=== PATIENT | male | born 1955 | race Caucasian/White ===

== ENCOUNTER 2018-09-01 10:26 | Emergency (ER) | payer OTHER ==
[~2018-09-01] VITALS: Ht 177.8 cm; Wt 113.4 kg
[~2018-09-01 10:26] MED LIST: ASPI-1718 PO; CALCIUM PO; CARV25TA PO; INSU100S45 SUBQ; INSU100S55 SC; LEVEMIR SUBQ; LEVO0.083 PO; LISI10TA11 PO; SIMV40TA5 PO; TRAM50TA1 PO
--- NOTE | 2018-09-01 10:33 | NUR ---
PATIENT AMBULATED TO BED 9 AT THIS TIME.
[2018-09-01 10:35] VITALS: BP 174/84
--- NOTE | 2018-09-01 10:45 | NUR ---
C/O R great toe laceration x today. pt reports tripping on his sock this morning and then noticing the laceration. No active bleeding at this time. Pt denies pain. Pt foot propped in bed, removed pt gauze to assess wound, reapplied 1 piece 1x1 sterile gauze to cover wound until ERMD evaluation. Bed in low position. Pt resting in bed.
[2018-09-01] MEDS ORDERED: BACITRACIN OINT 500 UNITS/GM PKT TP ONE (10:50)
--- NOTE | 2018-09-01 11:10 | NUR ---
pts right big kayleen was coverd with bacitracin, steri-strip was placed to close the wound and then a non-adherent gauze was placed
--- NOTE | 2018-09-01 12:31 | NUR ---
PT RESTING IN BED, NO NEW NEEDS AT THIS TIME
--- NOTE | 2018-09-01 12:52 | NUR ---
DR MCCALLUM AND SHERIF EMT AT BEDSIDE
== END 2018-09-01 13:10 | disposition home or self-care (01) ==
LOC: MED 10:26
DX: S91.111A Laceration without foreign body of right great toe without damage to nail, initial encounter (principal); E11.9 Type 2 diabetes mellitus without complications; I10 Essential (primary) hypertension; Z88.8 Allergy status to other drugs, medicaments and biological substances; Z79.82 Long term (current) use of aspirin; Z79.4 Long term (current) use of insulin; Z79.899 Other long term (current) drug therapy; Z86.73 Personal history of transient ischemic attack (TIA), and cerebral infarction without residual deficits; W23.0XXA Caught, crushed, jammed, or pinched between moving objects, initial encounter; Y93.01 Activity, walking, marching and hiking; Y92.009 Unspecified place in unspecified non-institutional (private) residence as the place of occurrence of the external cause; Y99.8 Other external cause status
CPT/HCPCS: 12001; 73660; 99283; Q0092

== ENCOUNTER 2019-05-28 09:31 | Emergency (ER) | payer OTHER ==
[~2019-05-28] VITALS: Ht 177.8 cm; Wt 110.2 kg
[~2019-05-28 09:31] MED LIST changes: +SIMV-34 PO; -SIMV40TA5 PO
[2019-05-28 09:34] VITALS: BP 141/72
--- NOTE | 2019-05-28 09:34 | NUR ---
Patient ambulated to bed 4. RN evaluating patient at bedside.
[2019-05-28] MEDS ORDERED: FAMOTIDINE 20 MG TAB PO ONE (09:45)
[2019-05-28] MEDS ORDERED: predniSONE 20 MG TAB PO ONE (09:45)
--- NOTE | 2019-05-28 09:45 | NUR ---
64/M BIB SELF C/O RASH, NAUSEA, ABD PAIN, AND BODY ACHES X 2 DAYS.MEDHX: HTN, DM, CARDIAC DISORDER. PATIENT STATES PAIN OF 7/10 AT THIS TIME. PATIENT POSITIONED FOR COMFORT; HOB ELEVATED; BEDRAILS UP X1; BED DOWN. ER MD MADE AWARE OF PT STATUS.
[2019-05-28 10:06] VITALS: BP 109/62
--- NOTE | 2019-05-28 10:06 | NUR ---
Patient discharged with v/s stable. Written and verbal after care instructions given and explained. Patient alert, oriented and verbalized understanding of instructions. Ambulatory with steady gait. All questions addressed prior to discharge. ID band removed. Patient advised to follow up with PMD. Rx of PEPCID, PREDNISONE &ZOFRAN given. Patient educated on indication of medication including possible reaction and side effects. Opportunity to ask questions provided and answered.
== END 2019-05-28 10:06 | disposition home or self-care (01) ==
LOC: MED 09:31
DX: L50.0 Allergic urticaria (principal); E11.9 Type 2 diabetes mellitus without complications; I10 Essential (primary) hypertension; Z95.1 Presence of aortocoronary bypass graft; Z79.82 Long term (current) use of aspirin; Z79.899 Other long term (current) drug therapy; Z88.6 Allergy status to analgesic agent; Z88.8 Allergy status to other drugs, medicaments and biological substances
CPT/HCPCS: 99283; J7512

== ENCOUNTER 2023-07-13 17:51 | Emergency (ER) | payer OTHER ==
[~2023-07-13] VITALS: Ht 175.3 cm; Wt 99.8 kg
[~2023-07-13 17:51] MED LIST changes: -ASPI-1718 PO; +ASPI-1822 PO; +LISI-486 PO; -LISI10TA11 PO; +TRAM-748 PO; -TRAM50TA1 PO
[2023-07-13 17:54] VITALS: BP 135/46; PULSE 43; RESP 14; TEMP 98.5; O2SAT 99
[2023-07-13 18:15] LABS: BASOPHILS % (AUTO) 0.6 % (0.0-2.0); EOSINOPHILS # (AUTO) 0.2 K/uL (0-0.4); EOSINOPHILS % (AUTO) 2.2 % (0.0-4.0); HEMATOCRIT 21.1 % (36-52); HEMOGLOBIN 7.3 g/dL (12.0-18.0); LYMPHOCYTES # (AUTO) 0.5 K/uL (2.0-11.5); LYMPHOCYTES % (AUTO) 7.1 % (20.5-51.1); MEAN CORPUSCULAR HEMOGLOBIN 31 pg (27-31); MEAN CORPUSCULAR HGB CONC 35 g/dL (33-37); MEAN CORPUSCULAR VOLUME 89.1 fL (80-94); MONOCYTES # (AUTO) 0.6 K/uL (0.8-1.0); NEUTROPHILS # (AUTO) 6.1 K/uL (1.8-7.7); NEUTROPHILS % (AUTO) 82.1 % (42.2-75.2); PLATELET COUNT (AUTO) 318 K/uL (140-450); RED BLOOD CELL COUNT(AUTO) 2.36 MIL/uL (4.20-6.10); RED CELL DISTRIBUTION WIDTH 14.9 % (11.6-13.7); WHITE BLOOD COUNT (AUTO) 7.4 K/uL (4.8-10.8)
[2023-07-13] MEDS ORDERED: LEVO0.114 PO (18:15)
[2023-07-13] MEDS ORDERED: HYDR-1098 PO (18:15)
[2023-07-13] MEDS ORDERED: ATOR20TA PO (18:15)
[2023-07-13] MEDS ORDERED: CARV12.5 PO (18:15)
[2023-07-13] MEDS ORDERED: ISOS20TA13 PO (18:15)
[2023-07-13] MEDS ORDERED: MINO10TA16 PO (18:15)
[2023-07-13] MEDS ORDERED: FURO-570 PO (18:15)
[2023-07-13] MEDS ORDERED: SACU1TAB5 PO (18:15)
[2023-07-13 18:33] LABS: INR 1.2 (0.8-1.2); PROTHROMBIN TIME 12.5 secs (10.8-13.4)
[2023-07-13 18:42] LABS: ALANINE AMINOTRANSFERASE 116 U/L (12-78); ALBUMIN 2.4 g/dL (3.4-5.0); ALKALINE PHOSPHATASE 149 U/L (50-136); ANION GAP 17.3 (8-16); ASPARTATE AMINOTRANSFERASE 144 U/L (15-37); BILIRUBIN,DIRECT 0.4 mg/dL (0.0-0.3); CALCIUM 8.3 mg/dL (8.5-10.1); CARBON DIOXIDE 20.6 mmol/L (21-32); CREATININE 3.5 mg/dL (0.6-1.3); POTASSIUM 3.9 mmol/L (3.5-5.1); TOTAL PROTEIN, SERUM 6.4 g/dL (6.4-8.2)
[2023-07-13] MEDS ORDERED: HEPARIN PER PHARMACY MC PRN (19:15)
[2023-07-13] MEDS: ASPIRIN 325 MG TAB PO ONE (19:32)
[2023-07-13 23:22] VITALS: BP 144/51; PULSE 47; RESP 15; TEMP 98; O2SAT 98
== END 2023-07-13 23:15 | disposition short-term general hospital (02) ==
LOC: MED 17:51
DX: S72.112A Displaced fracture of greater trochanter of left femur, initial encounter for closed fracture (principal); E11.22 Type 2 diabetes mellitus with diabetic chronic kidney disease; I13.0 Hypertensive heart and chronic kidney disease with heart failure and stage 1 through stage 4 chronic kidney disease, or unspecified chronic kidney disease; N18.9 Chronic kidney disease, unspecified; I50.9 Heart failure, unspecified; D63.1 Anemia in chronic kidney disease; R79.89 Other specified abnormal findings of blood chemistry; R74.01 Elevation of levels of liver transaminase levels; R53.83 Other fatigue; Z95.1 Presence of aortocoronary bypass graft; Z86.73 Personal history of transient ischemic attack (TIA), and cerebral infarction without residual deficits; Z79.899 Other long term (current) drug therapy; Z79.4 Long term (current) use of insulin; Z88.8 Allergy status to other drugs, medicaments and biological substances; X58.XXXA Exposure to other specified factors, initial encounter; Y92.89 Other specified places as the place of occurrence of the external cause; Y93.89 Activity, other specified; Y99.8 Other external cause status
CPT/HCPCS: 36415; 71045; 72170; 73552; 80048; 80076; 82140; 83605; 83880; 84484; 85025; 85610; 85730; 86886; 86900; 86901; 86920; 87040; 93005; 99291; Q0092